=== PATIENT | female | born 1970 | race African-American/Black ===

== ENCOUNTER 2017-02-14 20:08 | Emergency (ER) | payer BC ==
[2017-02-14 20:13] VITALS: BP 152/100; PULSE 60; TEMP 98.2; BMI 27.4
--- NOTE | 2017-02-14 20:18 | PDOC ---
History of Present Illness - General History Source: Patient Exam Limitations: No Limitations - History of Present Illness Initial Comments: 02/14/17 20:29 The patient is a 46 year old female with no significant PMH who presents to the emergency department with intermittent bilateral flank pain and nausea that began approximately three weeks ago. The patient states the bilateral flank pain is worsening and exacerbated by movement. The patient states her flank pain is not worsened by eating. The patient reports she has experienced similar flank pain prior to her menses but usually resolved on its own. The patient notes she has missed her menses this month. The patient reports some associated nausea but no vomiting. The patient denies chest pain, shortness of breath, headache and dizziness. Denies fever, chills, diarrhea and constipation. Allergies: Chocolate flavor, nut Past surgical history: Appendectomy, tubal ligation Social history: Former cigarette smoker (quit 20+ years ago), Former marijuana smoker. No reported alcohol use. PCP: Dr. Davison <Carri Damico - Last Filed: 02/14/17 20:39> <Irene Weiss - Last Filed: 02/14/17 23:35> - General Chief Complaint: Pain Stated Complaint: PAIN Time Seen by Provider: 02/14/17 20:17 Past History <Carri Damico - Last Filed: 02/14/17 20:39> - Past Medical History COPD: No - Surgical History Appendectomy: Yes - Suicide/Smoking/Psychosocial Hx Smoking History: Never smoked <Irene Weiss - Last Filed: 02/14/17 23:35> - Past Medical History Allergies/Adverse Reactions: Allergies Allergy/AdvReac Type Severity Reaction Status Date / Time chocolate flavor Allergy Verified 02/14/17 20:09 nut - unspecified Allergy Verified 02/14/17 20:09 Review of Systems - Review of Systems Able to Perform ROS?: Yes Comments:: 02/14/17 20:27 CONSTITUTIONAL: Absent: fever, no chills, no fatigue EYES: Absent: visual changes ENT: Absent: ear pain, no sore throat CARDIOVASCULAR: Absent: chest pain, no palpitations RESPIRATORY: Absent: cough, no SOB GI: Absent: abdominal pain, no vomiting, no constipation, no diarrhea Present: nausea GENITOURINARY: Absent: dysuria, no frequency, no hematuria MUSKULOSKELETAL: Absent: back pain, no arthralgia, no myalgia Present: bilateral flank pain SKIN: Absent: rash NEURO: Absent: headache <Carri Damico - Last Filed: 02/14/17 20:39> *Physical Exam - Vital Signs Last Vital Signs Temp Pulse Resp BP Pulse Ox 98.2 F 60 18 152/100 100 02/14/17 20:10 02/14/17 20:10 02/14/17 20:10 02/14/17 20:10 02/14/17 20:10 - Physical Exam Comments: 02/14/17 20:27 GENERAL: Well developed, well nourished. Awake and alert. No acute distress. HEENT: Normocephalic, atraumatic. PERRLA, EOMI. No conjunctival pallor. Sclera are non- icteric. Moist mucous membranes. Oropharynx is clear. NECK: Supple. Full ROM. No JVD. Carotid pulses 2+ and symmetric, without bruits. No thyromegaly. No lymphadenopathy. CARDIOVASCULAR: Regular rate and rhythm. No murmurs, rubs, or gallops. Distal pulses are 2+ and symmetric. PULMONARY: No evidence of respiratory distress. Lungs clear to auscultation bilaterally. No wheezing, rales or rhonchi. ABDOMINAL: Soft. Non-tender. Non-distended. No rebound or guarding. No organomegaly. Normoactive bowel sounds. MUSCULOSKELETAL Normal range of motion at all joints. No bony deformities or tenderness. No CVA tenderness. EXTREMITIES: No cyanosis. No clubbing. No edema. No calf tenderness. SKIN: Warm and dry. Normal capillary refill. No rashes. No jaundice. NEUROLOGICAL: Alert, awake, appropriate. Cranial nerves 2-12 grossly intact. Gait is normal without ataxia. PSYCHIATRIC: Cooperative. Good eye contact. Appropriate mood and affect. <Carri Damico - Last Filed: 02/14/17 20:39> - Vital Signs Last Vital Signs Temp Pulse Resp BP Pulse Ox 98.2 F 60 18 152/100 100 02/14/17 20:10 02/14/17 20:10 02/14/17 20:10 02/14/17 20:10 02/14/17 20:10 <Irene Weiss - Last Filed: 02/14/17 23:35> ED Treatment Course - LABORATORY CBC & Chemistry Diagram: 02/14/17 20:44 02/14/17 20:44 <Irene Weiss - Last Filed: 02/14/17 23:35> Medical Decision Making - Medical Decision Making 02/14/17 23:34 Patient Name: JASSI EASTMAN THIS IS A PRELIMINARY REPORT FROM [facility] DATE OF SERVICE: 2017-02-14 22:29:46 IMAGES: [id number] EXAM: CT abdomen and pelvis noncontrast HISTORY: Bilateral flank pain COMPARISON: None. FINDINGS: The kidneys are normal in size without hydronephrosis, nephrolithiasis or perinephric stranding. No calcifications are seen along the course of the ureters or within the bladder. The unenhanced upper abdominal visceral organs are otherwise unremarkable Umbilical hernia containing fat There is no bowel distention. A normal appendix is visualized Mild to moderate fecal retention in the colon There are bilateral tubal ligation clips Multiple calcifications in the pelvis are likely phleboliths No intra-abdominal free air or free fluid THIS DOCUMENT HAS BEEN ELECTRONICALLY SIGNED <Irene Weiss - Last Filed: 02/14/17 23:35> *DC/Admit/Observation/Transfer - Attestations Scribe Attestion: 02/14/17 20:38 Documentation prepared by Carri Damico, acting as medical data analyst for Irene Weiss MD. <Carri Damico - Last Filed: 02/14/17 20:39> - Discharge Dispostion Admit: No <Irene Weiss - Last Filed: 02/14/17 23:35> Diagnosis at time of Disposition: Flank pain - Discharge Dispostion Disposition: HOME Condition at time of disposition: Stable - Referrals Referrals: Scott Davison MD [Primary Care Provider] - - Patient Instructions Printed Discharge Instructions: DI for Flank Pain
[2017-02-14] MEDS ORDERED: SODIUM CHLORIDE 0.9% 500 ML INFUS.BAG IV ONE (20:25)
[2017-02-14 21:03] LABS: BASOPHIL 0.6 % (0-2.0); EOSINOPHIL 1.4 % (0-4.5); MCH 31.2 pg (25.7-33.7); MCHC 33.8 g/dl (32.0-36.0); MEAN CELL VOLUME 92.3 fl (80-96); NEUTROPHILS 42.1 % (42.8-82.8); PLATELET COUNT 205 K/MM3 (134-434); RDW 13.3 % (11.6-15.6)
[2017-02-14 21:19] LABS: URINE APPEARANCE CLEAR; URINE BILIRUBIN NEGATIVE (NEGATIVE); URINE BLOOD 2+ (NEGATIVE); URINE COLOR STRAW; URINE GLUCOSE (UA) NEGATIVE (NEGATIVE); URINE KETONE NEGATIVE (NEGATIVE); URINE LEUK ESTERASE NEGATIVE (NEGATIVE); URINE NITRITE NEGATIVE (NEGATIVE); URINE PROTEIN NEGATIVE (NEGATIVE); URINE UROBILINOGEN NEGATIVE mg/dL (0.2-1.0)
[2017-02-14 21:24] LABS: ALBUMIN 4.2 g/dl (3.4-5.0); ANION GAP 7 (8-16); BILIRUBIN,TOTAL 0.2 mg/dL (0.2-1.0); CALCIUM 8.8 mg/dL (8.5-10.1); CO2 25 mmol/L (21-32); CREATININE 0.8 mg/dL (0.55-1.02); GLUCOSE,RANDOM 108 mg/dL (74-106); SGOT/AST 12 U/L (15-37); SGPT/ALT 21 U/L (12-78); TOT PROT 7.4 g/dl (6.4-8.2)
[2017-02-14 21:25] LABS: ALK PHOS 64 U/L (45-117)
[2017-02-14 21:37] LABS: URINE MUCUS RARE; URINE RBC 5 /hpf (0-3); URINE WBC 1 /hpf (3-5)
[2017-02-14] MEDS ORDERED: METHOCARBAMOL 500 MG TABLET PO ONE (23:51)
[2017-02-14] MEDS ORDERED: METHOCARBAMOL 500 MG TABLET ONE (23:53)
[2017-02-15 18:52] LABS: URINE LEUK ESTERASE NEGATIVE (NEGATIVE)
== END 2017-02-15 00:12 | disposition home or self-care (01) ==
LOC: JER 20:08
PROC: 3E0337Z Introduction of Electrolytic and Water Balance Substance into Peripheral Vein, Percutaneous Approach (ICD-10-PCS; principal; 2017-02-14)
DX: R10.31 Right lower quadrant pain (principal); R10.32 Left lower quadrant pain
CPT/HCPCS: 36415; 74176; 80053; 81003; 81015; 84702; 85025; 99283-25